=== PATIENT | female | born 1960 | race African-American/Black ===

== ENCOUNTER 2016-08-26 13:38 | Emergency (ER) | payer OTHER, MEDICAID ==
[2016-08-26 14:42] VITALS: BP 145/95
--- NOTE | 2016-08-26 16:05 | RAD ---
Indication: LEFT lower quadrant pain and cramping for one week. Blood in stool. Previous pelvic surgery. Comparison: None. Technique: Supine and upright abdomen radiographs. Report: Negative for free air beneath the diaphragm. Unremarkable bowel gas pattern. Pelvic phleboliths. 0.3 cm round calcifications seen adjacent to the L3 and L5 spinous processes on the LEFT . While most suspicious for phleboliths based on morphology a ureteral stone is not entirely excluded. Unremarkable paraspinal soft tissue contours. IMPRESSION: 1. Negative for free air or radiographic abnormality of the bowel loops. 2. Pelvic phleboliths. 0.3 cm round calcifications seen adjacent to the L3 and L5 spinous processes on the LEFT. While most suspicious for phleboliths based on morphology a ureteral stone is not entirely excluded.
[2016-08-26 20:35] LABS: Hematocrit 43 % (35-47); Hemoglobin 13.3 g/dl (12.0-16.0); Mean Corpuscular HGB Conc 31 g/dl (31-36); Mean Corpuscular Hemoglobin 24 pg (27-31); Mean Corpuscular Volume 76 fL (80-97); Mean Platelet Volume 10 um3 (7.4-10.4); Red Blood Count 5.63 10^6/ul (4.0-5.4); Red Cell Distribution Width 15 % (10.5-15); White Blood Count 8.6 10^3/ul (3.5-10.8)
[2016-08-26 22:23] LABS: Erythrocyte Sed Rate 30 mm/Hr (0-30)
--- NOTE | 2016-08-26 22:50 | UC ---
Kuldeep Kendall Anna, scribed for Letitia Gordon DO on 08/26/16 at 1452 . Abdominal Pain Female HPI - HPI Summary HPI Summary: Patient is a 56 y/o female coming to [facility] [place] with intermittent spikes of intense lower left abdominal cramping that began one week ago. She reports that the cramping began after drinking a previously frozen shake of apples, spinach, celery, and orange juice one week ago. She experienced diarrhea and cramping for three days. The diarrhea and cramps were somewhat alleviated when she drank some water, lemon juice, and olive oil. Yesterday she had liquid explosive BM again. Didnt eat last night or today because of the symptoms. The cramps are of the worst severity, described as 10/10 when they peak. She has an active hemorrhoid and has noticed bright red in her stool, but not frequently. Denies sweats, nausea, chills, vomiting, sore throat, ear ache, eye discharge, dysuria, or SOB. Palpation or BM relieve the pain somewhat, but the pain returns. It does not seem to be exacerbated by anything in particular. Denies recent abx or exposure to pets. No known exposure to anyone with similar symptoms. Has well water at home. Visited sister in the hospital 1-2 months ago. LNMP was 8 years ago. - History of Current Complaint Chief Complaint: UCAbdominalPain Stated Complaint: ABD PAIN Time Seen by Provider: 08/26/16 14:41 Hx Obtained From: Patient ?: No Onset/Duration: Lasting Weeks - 1, Still Present Severity Initially: Moderate Severity Currently: Mild Pain Intensity: 10 - none currently Pain Scale Used: 0-10 Numeric Location: Discrete At: LLQ Radiates: No Character: Cramping Aggravating Factor(s): Nothing Alleviating Factor(s): Bowel Movement, Other: - palpation Associated Signs and Symptoms: Positive: Blood in Stool, Diarrhea. Negative: Fever, Cough, Dizzy, Back Pain, Urinary Symptoms, Decreased Appetite, Vaginal Bleeding, Nausea, Vomiting Allergies/Adverse Reactions: Allergies Allergy/AdvReac Type Severity Reaction Status Date / Time No Known Allergies Allergy Verified 08/26/16 14:42 Home Medications: Home Medications Lisinopril & Hydrochlorothiazi [Zestoretic 20-12.5 mg-] 1 tab PO DAILY 08/26/16 [History Confirmed 08/26/16] Metformin HCl [Glucophage] 08/26/16 [History] PMH/Surg Hx/FS Hx/Imm Hx - Additional Past Medical History Additional PMH: Cannot smell Endocrine History Of: Reports: Diabetes - type 2 Cardiovascular History Of: Reports: Hypertension GI/ History Of: Reports: Gastroesophageal Reflux - Surgical History Surgical History: Yes Surgery Procedure, Year, and Place: ectopic , uterine fibroides removed , hemmorhoid surgery - Family History Known Family History: Positive: Hypertension, Diabetes, Other - Cancer - Social History Occupation: Unemployed Lives: Alone Alcohol Use: Occasionally Substance Use Type: None Smoking Status (MU): Never Smoked Tobacco Review of Systems Constitutional: Negative Skin: Negative Eyes: Negative ENT: Negative Respiratory: Negative Cardiovascular: Negative Gastrointestinal: Abdominal Pain, Diarrhea Genitourinary: Other - active hemorrhoid, blood in stool Motor: Negative Neurovascular: Negative Musculoskeletal: Negative Neurological: Negative Psychological: Negative All Other Systems Reviewed And Are Negative: Yes Physical Exam Triage Information Reviewed: Yes Appearance: Well-Appearing, No Pain Distress, Well-Nourished Vital Signs: Initial Vital Signs Temp 97.1 F 08/26/16 14:35 Pulse 78 08/26/16 14:35 Resp 18 08/26/16 14:35 BP 145/95 08/26/16 14:35 Pulse Ox 100 08/26/16 14:35 Vital Signs Reviewed: Yes Eyes: Positive: Conjunctiva Clear. Negative: Discharge ENT: Positive: Hearing grossly normal. Negative: Muffled/hoarse voice Neck: Positive: Supple, Nontender Respiratory: Positive: Lungs clear, Normal breath sounds, No respiratory distress, No accessory muscle use Cardiovascular: Positive: RRR, No Murmur Abdomen Description: Positive: Nontender, Soft. Negative: Distended, Guarding Bowel Sounds: Positive: Hyperactive Musculoskeletal Exam: Normal Neurological: Positive: Alert, Muscle Tone Normal Psychological Exam: Normal Psychological: Positive: Age Appropriate Behavior Skin Exam: Normal - warm, dry, normal color Diagnostics - Radiology Abdomen XR Xray Interpretation: Positive (See Comments) Radiology Interpretation Completed By: Radiologist - IMPRESSION: 1. Negative for free air or radiographic abnormality of the bowel loops. 2. Pelvic phleboliths. 0.3 cm round calcifications seen adjacent to the L3 and L5 spinous processes on the LEFT. While most suspicious for phleboliths based on morphology a ureteral stone is not entirely excluded. Abd Pain Female Course/Dx - Differential Dx/Diagnosis Differential Diagnosis: Irritable Bowel Syndrome, Pelvic Inflammatory Disease, Renal Colic, Urinary Tract Infection, Other - gastroenteritis, colitis Provider Diagnoses: gastroenteritis, infectious colitis Discharge - Discharge Plan Condition: Stable Disposition: HOME Patient Education Materials: Gastroenteritis (ED), Infectious Colitis (ED) Referrals: [facility] [place] [facility] [Outside] (FOLLOW UP ON Monday08/29/16) Additional Instructions: WE ARE SENDING IN STOOL TO TEST FOR INFECTIOUS CAUSES OF YOUR DIARRHEA AND CRAMPING. WE HAVE ALSO DONE SOME BLOOD WORK. YOU WILL BE CALL WITH CONCERNING RESULTS. You should go to the ER immediately if you develop severe pain, fever, shortness of breath, chest pain, dizziness, difficulty urinating, weakness, severe thirst, or fast heartbeat. The documentation as recorded by the Kuldeep encarnacion Anna accurately reflects the service I personally performed and the decisions made by , Letitia Gordon DO.
== END 2016-08-26 17:28 | disposition home or self-care (01) ==
LOC: UCEAST 13:38
DX: A09 Infectious gastroenteritis and colitis, unspecified (principal); E11.9 Type 2 diabetes mellitus without complications; Z79.84 Long term (current) use of oral hypoglycemic drugs; I10 Essential (primary) hypertension
CPT/HCPCS: 36415; 74020; 81002; 83630; 85025; 85652; 86141; 87045; 87046; 87077; 87086; 87328; 87329; 87493; 87899; 99201; G0463

== ENCOUNTER 2016-08-31 13:06 | Emergency (ER) | payer OTHER, MEDICAID ==
[2016-08-31] MEDS ORDERED: NS 0.9% 1000 ML* 1,000 ML IV ONE (15:15)
[2016-08-31 15:46] LABS: Add Diff/Slide Review? Slide Review Added; Comments Flag Yes; Hematocrit 42 % (35-47); Mean Corpuscular HGB Conc 31 g/dl (31-36); Mean Corpuscular Hemoglobin 23 pg (27-31); Mean Corpuscular Volume 75 fL (80-97); Mean Platelet Volume 9 um3 (7.4-10.4); Red Cell Distribution Width 14 % (10.5-15); White Blood Count 9.6 10^3/ul (3.5-10.8)
[2016-08-31 15:59] LABS: Albumin 4.4 g/dL (3.2-5.2); BUN/Creatinine Ratio 13.1 (8-20); C Reactive Protein 22.16 mg/L (< 5.00); EGFR African American 90.2 (>60); EGFR Non-African American 70.1 (>60); Globulin 3.3 g/dL (2-4); Potassium 3.7 mmol/L (3.5-5.0); Total Bilirubin 0.5 mg/dL (0.2-1.0); Total Protein 7.7 g/dL (6.4-8.9)
[2016-08-31] MEDS ORDERED: Iodixanol* (CONTRAST) 320 MG/ML 100 ML SDV IV ONE (16:09)
[2016-08-31 16:29] VITALS: BP 136/85
[2016-08-31 16:34] LABS: Urine Bilirubin Negative (Negative); Urine Glucose Negative (Negative); Urine Nitrite Negative (Negative)
[2016-08-31 16:40] LABS: Hypochromasia 3+; Target Cells 1+
[2016-08-31 16:41] LABS: Macrocytosis 1+; Microcytosis 1+; Stomatocytes 1+
--- NOTE | 2016-08-31 18:04 | RAD ---
INDICATION: LEFT lower quadrant abdominal pain, cramping, diarrhea. Symptoms for 2 weeks. History of ectopic , uterine fibroids, hemorrhoid surgery. Diabetic. COMPARISON: August 26, 2016 abdomen radiographs. TECHNIQUE: Multidetector CT images were obtained from the lung bases to the ischial tuberosities with 128 mL Visipaque 320 IV and oral contrast. Multiplanar reformation. REPORT: Unremarkable visualized inferior thorax. Normal size liver is decreased in density consistent with fatty infiltration. No focal hepatic lesions or biliary dilatation. Unremarkable gallbladder, pancreas, spleen. Negative for CT abnormality of the upper GI, small bowel, or infra cecal appendix. Enteric contrast extends to the rectum. Moderate diverticulosis of the sigmoid colon. No focal mural thickening of the colon or perienteric inflammatory change evident. Negative for ascites or free air. There is a broad mouth shallow RIGHT para midline infraumbilical small bowel containing ventral hernia measuring up to 5.2 cm cephalocaudal and 2.2 cm transverse. The hernia measures only up to 1.3 cm in depth and does not extend beyond the superficial muscular fascia at the RIGHT rectus abdominis/linea alba. No associated inflammatory change or resulting bowel obstruction. Normal adrenal glands. Unremarkable kidneys with symmetric contrast excretion. Unremarkable ureters. Enlarged lobular margined fibroid uterus results in impression on the RIGHT superior and lateral margin of the otherwise unremarkable urinary bladder. Dominant uterine fibroid measures up to 7 cm maximum dimension. Unremarkable adnexal regions. Negative for lymphadenopathy. Normal diameter abdominal aorta and iliac arteries. Physiologic distention of the IVC. Negative for suspicious osseous lesions. IMPRESSION: 1. Fatty infiltration of the liver. 2. Normal appendix documented. 3. Moderate diverticulosis of the sigmoid colon without findings of acute diverticulitis. 4. Nonobstructing shallow RIGHT para midline infraumbilical ventral hernia without acute inflammatory change. 5. Enlarged fibroid uterus. 6. Negative for obstructive uropathy.
[2016-08-31] MEDS ORDERED: Ketorolac INJ* 30 MG/ML 1 ML VIAL IV PUSH ONE (18:09)
--- NOTE | 2016-08-31 19:01 | ED ---
Kuldeep Kendall Anna, scribed for Harjit Zarate MD on 08/31/16 at 1515 . Abdominal Pain/Female - HPI Summary HPI Summary: Patient is a 56 y/o [place] [facility] [place] with intermittent spikes of intense lower left abdominal cramping that began two weeks ago. She describes the severity of the symptoms as 10/10. She reports that the cramping began after drinking a previously frozen shake of apples, spinach, celery, and orange juice. The symptoms were not alleviated by Magnesium. The cramps were alleviated with ibuprofen, but cramping has returned after she stopped taking ibuprofen. She has only been eating homemade chicken salad made with yogurt recently. Denies nausea, vomiting, vaginal bleeding. She has never had this pain before. LNMP was 8 years ago. Had 2 BM this morning. - History of Current Complaint Chief Complaint: EDAbdPain Stated Complaint: LT SIDE ABD CRAMPING/PAIN Time Seen by Provider: 08/31/16 15:08 Hx Obtained From: Patient ?: No Pain Intensity: 10 Pain Scale Used: 0-10 Numeric Allergies/Adverse Reactions: Allergies Allergy/AdvReac Type Severity Reaction Status Date / Time No Known Allergies Allergy Verified 08/31/16 13:13 PMH/Surg Hx/FS Hx/Imm Hx Endocrine/Hematology History: Reports: Hx Diabetes - type 2 Cardiovascular History: Reports: Hx Hypertension History: Denies: Hx Kidney Stones - Surgical History Surgery Procedure, Year, and Place: ectopic , uterine fibroides removed , hemmorhoid surgery Infectious Disease History: No Infectious Disease History: Denies: Traveled Outside the [place] in Last 30 Days - Family History Known Family History: Positive: Hypertension, Diabetes, Other - Cancer - Social History Lives: Alone Alcohol Use: Occasionally Substance Use Type: Reports: None Smoking Status (MU): Never Smoked Tobacco Review of Systems Constitutional: Negative Eyes: Negative ENT: Negative Cardiovascular: Negative Respiratory: Negative Positive: Abdominal Pain, Diarrhea Genitourinary: Negative Musculoskeletal: Negative Skin: Negative Neurological: Negative Psychological: Normal All Other Systems Reviewed And Are Negative: Yes Physical Exam - Summary Physical Exam Summary: VITAL SIGNS: Reviewed. GENERAL: Patient is a well developed and nourished female who is lying comfortable in the stretcher. Patient is not in any acute respiratory distress. HEAD AND FACE: Normocephalic and atraumatic. EYES: PERRLA, EOMI x 2, No injected conjunctiva. EARS: Hearing grossly intact. Ear canals and tympanic membranes are WNL. MOUTH: Oropharynx within normal limits. NECK: Supple, trachea is midline, no adenopathy, no JVD. CHEST: Symmetric, no tenderness at palpation LUNGS: Clear to auscultation bilaterally. No wheezing or crackles. CVS: RRR,, S1 and S2 present, no murmurs or gallops appreciated. ABDOMEN: Soft, LLQ tenderness. No signs of distention. Positive bowel sounds. No rebound no guarding, and no masses palpated. No abdominal bruit or pulsations. EXTREMITIES: FROM in all major joints, no edema, no cyanosis or clubbing. NEURO: Alert and oriented x 3. No acute neurological deficits. Speech is normal. SKIN: Dry and warm Vital Signs On Initial Exam: Initial Vitals Temp Pulse Resp BP Pulse Ox 97.8 F 81 16 147/93 100 08/31/16 13:07 08/31/16 13:07 08/31/16 13:07 08/31/16 13:07 08/31/16 13:07 Diagnostics - Vital Signs Vital Signs Temp Pulse Resp BP Pulse Ox 08/31/16 13:07 97.8 F 81 16 147/93 100 - Laboratory Result Diagrams: 08/31/16 15:30 08/31/16 15:30 Lab Statement: Any lab studies that have been ordered have been reviewed, and results considered in the medical decision making process. - CT CT abd/pel CT Interpretation: Positive (See Comments) CT Interpretation Completed By: Radiologist - IMPRESSION: 1. Fatty infiltration of the liver. 2. Normal appendix documented. 3. Moderate diverticulosis of the sigmoid colon without findings of acute diverticulitis. 4. Nonobstructing shallow RIGHT para midline infraumbilical ventral hernia without acute inflammatory change. 5. Enlarged fibroid uterus. 6. Negative for obstructive uropathy. Abdominal Pain Fem Course/Dx - Course Course Of Treatment: 4: Patient is a 56 y/o [place] [facility] [place] with intermittent spikes of intense lower left abdominal cramping that began two weeks ago. She describes the severity of the symptoms as 10/10. She reports that the cramping began after drinking a previously frozen shake of apples, spinach, celery, and orange juice. The symptoms were not alleviated by Magnesium. The cramps were alleviated with ibuprofen, but cramping has returned after she stopped taking ibuprofen. She has only been eating homemade chicken salad made with yogurt recently. Denies nausea, vomiting, vaginal bleeding. She has never had this pain before. LNMP was 8 years ago. Had 2 BM this morning. Blood work WNL except for increase CRP of 22.16. UA negative for UTI. ABdominal and Pelvic CT impression: 1. Fatty infiltration of the liver. 2. Normal appendix documented. 3. Moderate diverticulosis of the sigmoid colon without findings of acute diverticulitis. 4. Nonobstructing shallow RIGHT para midline infraumbilical ventral hernia without acute inflammatory change. 5. Enlarged fibroid uterus. 6. Negative for obstructive uropathy. In the Ed course she was given Toradol and her symptoms improved. I believe that the etiology of her symptoms are the Fibroid uterus or the right paraumbilical hernia. There is no signs of incarceration. She will be discharged home with F/ U of PMD. I discussed all the findings and test results with the patient and patient. Patient was instructed to return to the emergency room immediately if any of the symptoms return or worsens. They understand and agree. They were explained the possibility of an early abdominal pathology which was not detected at this time despite the physical exam and testing. They understand and agree. Abdominal exam before discharge: Soft,NT. No signs of distention. BS present. No rebound no guarding, and no masses palpated. Patient is alert and oriented. Patient is hemodynamically stable. Patient is to follow up with primary care physician in the next 24 hours. Patient and patients parents agree and understands. - Diagnoses Differential Diagnosis: Positive: Bowel Obstruction, Constipation, Diverticulitis, Irritable Bowel Syndrome, Pancreatitis, Renal Colic Provider Diagnoses: Abdominal pain, infraumbilical hernia Discharge - Discharge Plan Condition: Stable Disposition: HOME Patient Education Materials: Uterine Fibroids (ED), Umbilical Hernia (ED), Abdominal Pain (ED) [place]errals: [facility] [place] [place]] Additional Instructions: Follow up with primary care physician within 24 hours. Return to the emergency department for changing or worsening symptoms. The documentation as recorded by the Kuldeep encarnacion Anna accurately reflects the service I personally performed and the decisions made by Elliot krause Walter, MD.
== END 2016-08-31 18:34 | disposition home or self-care (01) ==
LOC: ED 13:06
DX: R10.32 Left lower quadrant pain (principal); R19.7 Diarrhea, unspecified; K42.9 Umbilical hernia without obstruction or gangrene; K76.0 Fatty (change of) liver, not elsewhere classified; D25.9 Leiomyoma of uterus, unspecified
CPT/HCPCS: 36415; 74177; 80053; 81003; 82150; 83605; 83690; 85025; 86140; 96361; 96374; 99282; J1885; Q9967

== ENCOUNTER 2019-07-07 11:18 | Emergency (ER) | payer MEDICAID ==
[2019-07-07 12:07] LABS: ABS Lymphocytes 2.9 10^3/ul (1.0-4.8); ABS Monocytes 0.6 10^3/ul (0-0.8); ABS Neutrophils 6.1 10^3/ul (1.5-7.7); Eosinophil % 0.5 %; Hematocrit 37 % (35-47); Hemoglobin 11.9 g/dL (12.0-16.0); Lymphocyte % 29.9 %; Mean Corpuscular HGB Conc 32 g/dL (31-36); Mean Corpuscular Hemoglobin 24 pg (27-31); Mean Corpuscular Volume 77 fL (80-97); Mean Platelet Volume 8.6 fL (7.4-10.4); Platelet Count 181 10^3/uL (150-450); Red Blood Count 4.86 10^6 /uL (3.70-4.87); Red Cell Distribution Width 16 % (10-15); White Blood Count 9.5 10^3/uL (3.5-10.8)
[2019-07-07 12:13] LABS: Albumin 4.1 g/dL (3.2-5.2); Calcium 9.2 mg/dL (8.6-10.3); Magnesium 1.9 mg/dL (1.9-2.7); Potassium 4.1 mmol/L (3.5-5.0); Total Bilirubin 0.4 mg/dL (0.2-1.0)
[2019-07-07 12:19] LABS: Albumin/Globulin Ratio 1.4 (1-3); BUN/Creatinine Ratio 20.2 (8-20); C Reactive Protein 18.9 mg/L (<8.01); EGFR Non-African American 69.4 (>60); Globulin 2.9 g/dL (2-4)
[2019-07-07] MEDS ORDERED: Iodixanol* (CONTRAST) 320 MG/ML 100 ML SDV IV ONE (12:25)
[2019-07-07 12:51] LABS: Urine Appearance Clear; Urine Bilirubin Negative (Negative); Urine Blood 1+ (Negative); Urine Color Yellow; Urine Glucose Negative (Negative); Urine Ketones Negative (Negative); Urine Nitrite Negative (Negative); Urine Protein Negative (Negative); Urine Specific Gravity 1.017 (1.010-1.030); Urine Urobilinogen Negative (Negative)
[2019-07-07 12:52] LABS: Urine Bacteria Absent (Absent); Urine Red Blood Cell Trace(0-2/hpf) (Absent); Urine Squamous Epithelial Cell Present (Absent); Urine White Blood Cell Trace(0-5/hpf) (Absent)
--- NOTE | 2019-07-07 14:09 | ED ---
Abdominal Pain/Female - HPI Summary HPI Summary: Patient is a 59-year-old female with a history of diabetes who presents to the ED with LLQ pain which is nonradiating. She denies any nausea or vomiting. Symptoms have been present 2 days and have been increasing in intensity. She denies any urinary symptoms. She feels like her stool may have been more dark than usual, but denies any bright red blood. She has been endorsing loose stools over the past 3-4 days. Denies fevers, sweats, chills. She states she continues to eat and drink okay. No history of diverticulitis, however has had a history of hernia to the left side as well as fibroids to the right side. She denies any pain to the RLQ. There are no current modifying factors. She has not taken any medication for relief. - History of Current Complaint Chief Complaint: EDAbdPain Stated Complaint: ABD CRAMPS PER PT Time Seen by Provider: 07/07/19 11:38 Hx Obtained From: Patient ?: No Onset/Duration: Sudden Onset Timing: Constant Severity Initially: Moderate Severity Currently: Moderate Pain Intensity: 3 Pain Scale Used: 0-10 Numeric Location: Discrete At: LLQ Radiates: No Aggravating Factor(s): Nothing Alleviating Factor(s): Nothing Associated Signs and Symptoms: Positive: Diarrhea - loose stools - dark per patient, no BRB - Risk Factors Ectopic Risk Factor: Negative Ovarian Torsion Risk Factor: Negative Allergies/Adverse Reactions: Allergies Allergy/AdvReac Type Severity Reaction Status Date / Time atorvastatin Allergy GI Upset Verified 07/07/19 11:25 metformin Allergy See Comment Verified 07/07/19 11:25 PMH/Surg Hx/FS Hx/Imm Hx Previously Healthy: Yes Endocrine/Hematology History: Reports: Hx Diabetes - type 2 Cardiovascular History: Reports: Hx Hypertension History: Denies: Hx Kidney Stones - Surgical History Surgery Procedure, Year, and Place: ectopic , uterine fibroides removed , hemmorhoid surgery - Immunization History Hx Pertussis Vaccination: No Immunizations Up to Date: Yes Infectious Disease History: No Infectious Disease History: Denies: Traveled Outside the [place] in Last 30 Days - Family History Known Family History: Positive: Hypertension, Diabetes, Other - Cancer - Social History Occupation: Employed Full-time Lives: With Family Alcohol Use: Occasionally Hx Substance Use: Yes Substance Use Type: Reports: Marijuana Substance Use Comment - Amount & Last Used: occasional use Hx Tobacco Use: Yes Smoking Status (MU): Never Smoked Tobacco Review of Systems Negative: Fever, Chills, Fatigue, Skin Diaphoresis Negative: Palpitations, Chest Pain Negative: Shortness Of Breath, Cough Positive: Abdominal Pain, Diarrhea Genitourinary: Negative Positive: no symptoms reported, see HPI Negative: Arthralgia, Myalgia Negative: Rash, Bruising Neurological: Negative All Other Systems Reviewed And Are Negative: Yes Physical Exam Triage Information Reviewed: Yes Vital Signs On Initial Exam: Initial Vitals Temp Pulse Resp BP Pulse Ox 97.4 F 78 16 163/102 97 07/07/19 11:21 07/07/19 11:21 07/07/19 11:21 07/07/19 11:21 07/07/19 11:21 Vital Signs Reviewed: Yes Appearance: Positive: Well-Appearing Skin: Positive: Warm, Skin Color Reflects Adequate Perfusion Head/Face: Positive: Normal Head/Face Inspection Eyes: Positive: EOMI, CLARE, Conjunctiva Clear Neck: Positive: Supple, No Lymphadenopathy Respiratory/Lung Sounds: Positive: Clear to Auscultation, Breath Sounds Present Cardiovascular: Positive: RRR, Pulses are Symmetrical in both Upper and Lower Extremities Abdomen Description: Positive: Other: - tenderness only to deep palpation of the LLQ Bowel Sounds: Positive: Present Musculoskeletal: Positive: Normal, Strength/ROM Intact Neurological: Positive: Sensory/Motor Intact, Alert, Oriented to Person Place, Time, Speech Normal Psychiatric: Positive: Affect/Mood Appropriate AVPU Assessment: Alert Procedures - Sedation Patient Received Moderate/Deep Sedation with Procedure: No Diagnostics - Vital Signs Vital Signs Temp Pulse Resp BP Pulse Ox 07/07/19 12:00 72 95 07/07/19 11:32 79 149/95 94 07/07/19 11:21 97.4 F 78 16 163/102 97 - Laboratory Lab Results: Lab Results 07/07/19 07/07/19 07/07/19 Range/Units 11:54 11:54 11:54 WBC 9.5 (3.5-10.8) 10^3/uL RBC 4.86 (3.70-4.87) 10^6 /uL Hgb 11.9 L (12.0-16.0) g/dL Hct 37 (35-47) % MCV 77 L (80-97) fL MCH 24 L (27-31) pg MCHC 32 (31-36) g/dL RDW 16 H (10-15) % Plt Count 181 (150-450) 10^3/uL MPV 8.6 (7.4-10.4) fL Neut % (Auto) 63.4 % Lymph % (Auto) 29.9 % Kane % (Auto) 5.9 % Eos % (Auto) 0.5 % Baso % (Auto) 0.3 % Absolute Neuts (auto) 6.1 (1.5-7.7) 10^3/ul Absolute Lymphs (auto) 2.9 (1.0-4.8) 10^3/ul Absolute Monos (auto) 0.6 (0-0.8) 10^3/ul Absolute Eos (auto) 0.0 (0-0.6) 10^3/ul Absolute Basos (auto) 0.0 (0-0.2) 10^3/ul Absolute Nucleated RBC 0.0 10^3/ul Nucleated RBC % 0.0 Sodium 136 (135-145) mmol/L Potassium 4.1 (3.5-5.0) mmol/L Chloride 102 (101-111) mmol/L Carbon Dioxide 28 (22-32) mmol/L Anion Gap 6 (2-11) mmol/L BUN 17 (6-24) mg/dL Creatinine 0.84 (0.51-0.95) mg/dL Est GFR ( Amer) 84.0 (>60) Est GFR (Non-Af Amer) 69.4 (>60) BUN/Creatinine Ratio 20.2 H (8-20) Glucose 114 H (70-100) mg/dL Lactic Acid 0.8 (0.5-2.0) mmol/L Calcium 9.2 (8.6-10.3) mg/dL Magnesium 1.9 (1.9-2.7) mg/dL Total Bilirubin 0.40 (0.2-1.0) mg/dL AST 13 (13-39) U/L ALT 12 (7-52) U/L Alkaline Phosphatase 67 (34-104) U/L C-Reactive Protein 18.90 H (<8.01) mg/L Total Protein 7.0 (6.4-8.9) g/dL Albumin 4.1 (3.2-5.2) g/dL Globulin 2.9 (2-4) g/dL Albumin/Globulin Ratio 1.4 (1-3) Lipase 25 (11.0-82.0) U/L Urine Color Urine Appearance Urine pH (5-9) Ur Specific [place] (1.010-1.030) Urine Protein (Negative) Urine Ketones (Negative) Urine Blood (Negative) Urine Nitrate (Negative) Urine Bilirubin (Negative) Urine Urobilinogen (Negative) Ur Leukocyte Esterase (Negative) Urine WBC (Auto) (Absent) Urine RBC (Auto) (Absent) Ur Squamous Epith Cells (Absent) Urine Bacteria (Absent) Urine Glucose (Negative) 07/07/19 Range/Units 12:45 WBC (3.5-10.8) 10^3/uL RBC (3.70-4.87) 10^6 /uL Hgb (12.0-16.0) g/dL Hct (35-47) % MCV (80-97) fL MCH (27-31) pg MCHC (31-36) g/dL RDW (10-15) % Plt Count (150-450) 10^3/uL MPV (7.4-10.4) fL Neut % (Auto) % Lymph % (Auto) % Kane % (Auto) % Eos % (Auto) % Baso % (Auto) % Absolute Neuts (auto) (1.5-7.7) 10^3/ul Absolute Lymphs (auto) (1.0-4.8) 10^3/ul Absolute Monos (auto) (0-0.8) 10^3/ul Absolute Eos (auto) (0-0.6) 10^3/ul Absolute Basos (auto) (0-0.2) 10^3/ul Absolute Nucleated RBC 10^3/ul Nucleated RBC % Sodium (135-145) mmol/L Potassium (3.5-5.0) mmol/L Chloride (101-111) mmol/L Carbon Dioxide (22-32) mmol/L Anion Gap (2-11) mmol/L BUN (6-24) mg/dL Creatinine (0.51-0.95) mg/dL Est GFR ( Amer) (>60) Est GFR (Non-Af Amer) (>60) BUN/Creatinine Ratio (8-20) Glucose (70-100) mg/dL Lactic Acid (0.5-2.0) mmol/L Calcium (8.6-10.3) mg/dL Magnesium (1.9-2.7) mg/dL Total Bilirubin (0.2-1.0) mg/dL AST (13-39) U/L ALT (7-52) U/L Alkaline Phosphatase (34-104) U/L C-Reactive Protein (<8.01) mg/L Total Protein (6.4-8.9) g/dL Albumin (3.2-5.2) g/dL Globulin (2-4) g/dL Albumin/Globulin Ratio (1-3) Lipase (11.0-82.0) U/L Urine Color Yellow Urine Appearance Clear Urine pH 5.0 (5-9) Ur Specific [place] 1.017 (1.010-1.030) Urine Protein Negative (Negative) Urine Ketones Negative (Negative) Urine Blood 1+ A (Negative) Urine Nitrate Negative (Negative) Urine Bilirubin Negative (Negative) Urine Urobilinogen Negative (Negative) Ur Leukocyte Esterase Negative (Negative) Urine WBC (Auto) Trace(0-5/hpf) (Absent) Urine RBC (Auto) Trace(0-2/hpf) (Absent) Ur Squamous Epith Cells Present A (Absent) Urine Bacteria Absent (Absent) Urine Glucose Negative (Negative) Result Diagrams: 07/07/19 11:54 07/07/19 11:54 Lab Statement: Any lab studies that have been ordered have been reviewed, and results considered in the medical decision making process. Abdominal Pain Fem Course/Dx - Course Course Of Treatment: During this course of treatment, the patient is evaluated for LLQ pain which is nonradiating. She endorses this pain as a cramping and intermittent stabbing. Symptoms are rated low at 3/10. She has never had a history of diverticulitis. Pt appears well. Left lower quadrant tenderness on deep palpation, no tenderness on light palpation. No CVA tenderness bilaterally. Lungs CTA. RRR. Patient appears well, nondiaphoretic and nontoxic in appearing. Her vital signs are stable except for an elevated BP which reduced spontaneously after arrival. Labs are obtained which show a normal white count with an elevated CRP of 18.9. CT abdomen and pelvis: In the right colon and the ascending colon and proximal transverse colon as well as the hepatic flexure there is some mucosal edema suggestive of colitis. This may be ischemic or inflammatory or infectious in nature. In addition there appears to be diverticulitis with wall thickening of the sigmoid colon and the descending colon with underlying diverticulosis. No pericolonic abscesses noted. Discussed results with patient. As pain level is low with no evidence of BRBPR per patient, she will be dx with diverticulitis, however differentials do include ischemic colitis as well as inflammatory colitis, hernia, IBS, IBD and diarrhea with abd pain. - Diagnoses Differential Diagnosis: Positive: Other - colitis, ischemic colitis, inflammation, IBS, IBD Provider Diagnoses: Diverticulitis Discharge ED - Sign-Out/Discharge Documenting (check all that apply): Patient Departure - Discharge Plan Condition: Stable Disposition: HOME Prescriptions: Ciprofloxacin TAB* [Cipro 500 MG TAB*] 500 mg PO BID #14 tab metroNIDAZOLE [Flagyl 500 MG TAB] 500 mg PO TID #21 tab Patient Education Materials: Diverticulitis (ED), Diverticulitis Diet (ED) Referrals: No Primary Care Phys,NOPCP [Primary Care Provider] - Additional Instructions: Please follow up with PCP as soon as possible Ciprofloxacin twice daily 7 days Flagyl 3 times daily 7 days Eat small amounts at a time You may resume your normal diet after he began to feel improved - Billing Disposition and Condition Condition: STABLE Disposition: Home
[2019-07-07 14:17] VITALS: BP 157/91
== END 2019-07-07 14:16 | disposition home or self-care (01) ==
LOC: ED 11:18
DX: K57.92 Diverticulitis of intestine, part unspecified, without perforation or abscess without bleeding (principal); E11.9 Type 2 diabetes mellitus without complications; I10 Essential (primary) hypertension; Z88.8 Allergy status to other drugs, medicaments and biological substances
CPT/HCPCS: 36415; 74177; 80053; 81003; 81015; 83605; 83690; 83735; 85025; 86140; 87086; 99282; Q9967